=== PATIENT | male | born 1985 | race Caucasian/White ===

== ENCOUNTER 2020-05-14 02:08 | Emergency (ER) | payer SELFPAY ==
[~2020-05-14] VITALS: Ht 170.2 cm; Wt 78.0 kg
[2020-05-14 02:38] VITALS: BP 130/98
[2020-05-14] MEDS ORDERED: IBUPROFEN 800MG TABLET PO ONE (03:00)
[2020-05-14] MEDS ORDERED: IBUP-2029 MT (03:37)
[2020-05-14] MEDS ORDERED: ACETAMINOPHEN 325MG TABLET PO ONE (03:45)
== END 2020-05-14 03:56 | disposition home or self-care (01) ==
LOC: ER 02:08
DX: S62.122A Displaced fracture of lunate [semilunar], left wrist, initial encounter for closed fracture (principal); S62.112A Displaced fracture of triquetrum [cuneiform] bone, left wrist, initial encounter for closed fracture; I10 Essential (primary) hypertension; E11.9 Type 2 diabetes mellitus without complications; V49.49XA Driver injured in collision with other motor vehicles in traffic accident, initial encounter; Y93.89 Activity, other specified; Y92.488 Other paved roadways as the place of occurrence of the external cause
CPT/HCPCS: 73110; 99283